=== PATIENT | female | born 1980 | race Caucasian/White ===

== ENCOUNTER → 2018-01-05 07:11 | Outpatient (CLI) | payer OTHER, SELFPAY ==
--- NOTE | 2018-01-05 07:13 | DI.US.S_ITS ---
PROCEDURE: US PELVIC COMPLETE INDICATIONS: right lower quadrant pain x3 weeks TECHNIQUE: Real-time scanning was performed of the pelvic organs, with image documentation. Additional endovaginal scanning was necessary due to incomplete visualization of the adnexal and endometrial structures by transabdominal scanning. COMPARISON: None. FINDINGS: Transabdominal scanning: Limited scanning through the kidneys shows no hydronephrosis. No pathologic free abdominal or pelvic fluid. Endovaginal scanning: Uterus: Uterus is normal in size at 4.5 x 5.4 x 6.6 cm, retroverted. The endometrium measures 7.7 mm in combined thickness, with IUD centrally positioned. Several echogenic foci are seen along the endometrial lining, likely related to the reported history of lost coils related to IUD. Ovaries: Normal bilaterally measuring 1.8 x 1.9 x 3.2 cm on the right and 1.5 x 2.3 x 2.6 cm on the left IMPRESSION: Normal appearing ovaries bilaterally. Centrally positioned IUD noted within the endometrial canal, with adjacent several echogenic foci in the clinical circumstance of reported lost coils from IUD. Dictated by: Deven Hernandez M.D. on 01/05/2018 at 9:20 Approved by: Deven Hernandez M.D. on 01/05/2018 at 9:22
== END ==
PROVIDERS: Family Provider Family Medicine; PCP Family Medicine; Visit Provider Family Medicine
DX: R10.31 Right lower quadrant pain (principal); Z97.5 Presence of (intrauterine) contraceptive device
CPT/HCPCS: 76830; 76856

== ENCOUNTER → 2018-11-07 09:54 | Outpatient (CLI) | payer OTHER, SELFPAY | PROVIDERS: Family Provider Family Medicine; PCP Family Medicine; Visit Provider Physician Assistant | DX: R05 Cough (principal) | CPT/HCPCS: 87400 ==

== ENCOUNTER → 2020-03-19 10:19 | Outpatient (CLI) | payer OTHER, SELFPAY ==
[2020-03-19 10:53] LABS: Add Manual Diff / Slide Review NO; Basophils Absolute Auto 100 /uL (0-100); Basophils Percent Auto 1.1 % (0-2); Eosinophils Absolute Auto 100 /uL (0-450); Eosinophils Percent Auto 1.2 % (2-4); Hematocrit 38.3 % (36-46); Hemoglobin 12.5 g/dL (12.0-16.0); Lymphocytes Absolute Auto 1500 /uL (1100-4500); Lymphocytes Percent Auto 23.8 % (25-40); Mean Corpuscular HGB Conc 32.6 % (30-36); Mean Corpuscular Hemoglobin 27.6 PG (26-34); Mean Corpuscular Volume 84.8 fL (80-100); Monocytes Absolute Auto 400 /uL (0-900); Monocytes Percent Auto 6.3 % (3-14); Neutrophils Absolute Auto 4200 /uL (1500-7000); Neutrophils Percent Auto 67.6 % (50-75); Platelet Count 210 X10^3/uL (150-400); Red Blood Cell Count 4.51 X10^6/uL (4.0-5.2); Red Cell Distribution Width 13.4 % (11.6-14.8); White Blood Cell Count 6.2 X10^3/uL (4.5-11.0)
[2020-03-19 11:09] LABS: HEMOLYSIS < 15 (0-50); Iron 70 ug/dL (37-170)
[2020-03-19 11:15] LABS: Alanine Aminotransferase 12 IU/L (<35); Albumin 4.3 g/dL (3.5-5.0); Albumin Globulin Ratio 1.5 (1.0-2.8); Alkaline Phosphatase 39 U/L (38-126); Aspartate Aminotransferase 22 IU/L (14-36); BUN Creatinine Ratio 21.8 (6-22); Bilirubin Total 0.5 mg/dL (0.2-1.3); Blood Urea Nitrogen 12 mg/dL (7-17); Calcium 9.1 mg/dL (8.4-10.2); Carbon Dioxide 27 mmol/L (22-32); Chloride 104 mmol/L (98-107); Estimated Glomerular Filt Rate > 60.0 mL/min (>60); Globulin 2.8 g/dL (1.7-4.1); Glucose 102 mg/dL (70-100); HEMOLYSIS < 15 (0-50); Potassium 4.4 mmol/L (3.4-5.1); Sodium 136 mmol/L (137-145); Total Protein 7.1 g/dL (6.3-8.2)
[2020-03-19 11:21] LABS: Percent Iron Saturation 22 % (15-50); Total Iron Binding Capacity 320 ug/dL (265-497); Transferrin 243 mg/dL (206-381)
[2020-03-19 11:26] LABS: Vitamin D 25 Hydroxy (D3) 38.4 ng/mL (30.0-100.0)
[2020-03-19 11:29] LABS: Free T3, Triiodothyronine Free 3.67 pg/mL (2.77-5.27); Free T4, Direct Thyroxine 1.35 ng/dL (0.78-2.19)
[2020-03-19 11:43] LABS: Thyroid Stimulating Hormone 1.06 uIU/mL (0.47-4.68)
== END ==
PROVIDERS: Family Provider Family Medicine; PCP Family Medicine; Referring Provider Family Medicine; Visit Provider Family Medicine
DX: R53.83 Other fatigue (principal); D64.9 Anemia, unspecified; E03.9 Hypothyroidism, unspecified
CPT/HCPCS: 36415; 80053; 82306; 83540; 83550; 84439; 84443; 84481; 85025

== ENCOUNTER → 2021-08-20 12:12 | Outpatient (CLI) | payer OTHER, SELFPAY ==
[2021-08-20 12:52] LABS: Add Manual Diff / Slide Review NO; Basophils Absolute Auto 0 /uL (0-100); Basophils Percent Auto 1.1 % (0-2); Eosinophils Absolute Auto 100 /uL (0-450); Eosinophils Percent Auto 1.8 % (2-4); Hematocrit 35.9 % (36-46); Hemoglobin 11.9 g/dL (12.0-16.0); Lymphocytes Absolute Auto 1100 /uL (1100-4500); Lymphocytes Percent Auto 26.2 % (25-40); Mean Corpuscular HGB Conc 33.2 % (30-36); Mean Corpuscular Hemoglobin 27.2 PG (26-34); Mean Corpuscular Volume 81.8 fL (80-100); Monocytes Absolute Auto 400 /uL (0-900); Monocytes Percent Auto 8.5 % (3-14); Neutrophils Absolute Auto 2700 /uL (1500-7000); Neutrophils Percent Auto 62.4 % (50-75); Platelet Count 237 X10^3/uL (150-400); Red Cell Distribution Width 15.3 % (11.6-14.8); White Blood Cell Count 4.3 X10^3/uL (4.5-11.0)
[2021-08-20 13:25] LABS: Alanine Aminotransferase 27 IU/L (<35); Albumin 4.5 g/dL (3.5-5.0); Albumin Globulin Ratio 1.6 (1.0-2.8); Alkaline Phosphatase 41 U/L (38-126); Aspartate Aminotransferase 26 IU/L (14-36); BUN Creatinine Ratio 24.1 (6-22); Bilirubin Total 0.5 mg/dL (0.2-1.3); Blood Urea Nitrogen 13 mg/dL (7-17); Calcium 9.5 mg/dL (8.4-10.2); Carbon Dioxide 29 mmol/L (22-32); Chloride 104 mmol/L (98-107); Estimated Glomerular Filt Rate > 60.0 mL/min (>60); Globulin 2.9 g/dL (1.7-4.1); Glucose 79 mg/dL (70-100); HEMOLYSIS < 15 (0-50); Potassium 4.1 mmol/L (3.4-5.1); Sodium 138 mmol/L (137-145); Total Protein 7.4 g/dL (6.3-8.2)
[2021-08-20 13:30] LABS: Rheumatoid Factor < 8.6 IU/mL (<12.0)
[2021-08-20 14:02] LABS: TSH w/ Reflex to FT4 0.88 uIU/mL (0.47-4.68)
[2021-08-21 18:07] LABS: SS A Ro Sjogrens Antibody 0.3 AI (0.0-0.9); SS B La Sjogrens Antibody < 0.2 AI (0.0-0.9)
[2021-08-22 13:41] LABS: ANA Screen, IFA Negative (.)
== END ==
PROVIDERS: Family Provider Family Medicine; PCP Family Medicine; Referring Provider Family Medicine; Visit Provider Family Medicine
DX: R63.4 Abnormal weight loss (principal)
CPT/HCPCS: 36415; 80053; 84443; 85025; 86038; 86235; 86430

== ENCOUNTER → 2021-11-27 11:41 | Outpatient (CLI) | payer OTHER, SELFPAY ==
--- NOTE | 2021-11-27 11:43 | DI.MG.S_ITS ---
BILATERAL DIGITAL SCREENING MAMMOGRAM 3D/2D WITH CAD: 11/27/2021 CLINICAL: Routine screening. Baseline exam Family history of breast cancer. No prior exams were available for comparison. The tissue of both breasts is extremely dense, which lowers the sensitivity of mammography. Current study was also evaluated with a Computer Aided Detection (CAD) system. There are benign calcifications in both breasts. No significant masses, calcifications, or other findings are seen in either breast. IMPRESSION: BENIGN There is no mammographic evidence of malignancy. A 1 year screening mammogram is recommended. This exam was interpreted at Station ID: [id number]. NOTE: For mammograms, a report in lay terms will be sent to the patient. Approximately 15% of breast malignancies will not be visualized mammographically. In the management of a palpable breast mass, a negative mammogram must not discourage biopsy of a clinically suspicious lesion. Electronically Signed By: Conner andrade/maria:11/27/2021 16:14:47 letter sent: Normal Exam ACR BI-RADS Category 2: Benign Finding(s) 3342F
== END ==
PROVIDERS: Family Provider Family Medicine; PCP Family Medicine; Referring Provider Family Medicine; Visit Provider Family Medicine
DX: Z12.31 Encounter for screening mammogram for malignant neoplasm of breast (principal); Z80.3 Family history of malignant neoplasm of breast
CPT/HCPCS: 77063; 77067

== ENCOUNTER → 2022-10-19 09:04 | Outpatient (CLI) | payer OTHER, SELFPAY ==
[2022-10-19 10:40] LABS: Add Manual Diff / Slide Review NO; Basophils Absolute Auto 0 /uL (0-100); Basophils Percent Auto 0.3 % (0-2); Eosinophils Absolute Auto 100 /uL (0-450); Eosinophils Percent Auto 1.8 % (2-4); Hematocrit 35.2 % (36-46); Hemoglobin 11.6 g/dL (12.0-16.0); Lymphocytes Absolute Auto 1100 /uL (1100-4500); Lymphocytes Percent Auto 28.8 % (25-40); Mean Corpuscular HGB Conc 32.9 % (30-36); Mean Corpuscular Volume 79.1 fL (80-100); Monocytes Absolute Auto 300 /uL (0-900); Neutrophils Absolute Auto 2300 /uL (1500-7000); Neutrophils Percent Auto 61.1 % (50-75); Platelet Count 210 X10^3/uL (150-400); Red Blood Cell Count 4.45 X10^6/uL (4.0-5.2); Red Cell Distribution Width 15.9 % (11.6-14.8); White Blood Cell Count 3.8 X10^3/uL (4.5-11.0)
[2022-10-19 11:13] LABS: Alanine Aminotransferase 14 IU/L (<35); Albumin 4.2 g/dL (3.5-5.0); Albumin Globulin Ratio 1.4 (1.0-2.8); Alkaline Phosphatase 49 U/L (38-126); Aspartate Aminotransferase 18 IU/L (14-36); Bilirubin Total 0.5 mg/dL (0.2-1.3); Blood Urea Nitrogen 13 mg/dL (7-17); Calcium 8.8 mg/dL (8.4-10.2); Carbon Dioxide 30 mmol/L (22-32); Chloride 100 mmol/L (98-107); Estimated Glomerular Filt Rate > 60 mL/min (>60); Glucose 86 mg/dL (70-100); HEMOLYSIS < 15 (0-50); Potassium 4.8 mmol/L (3.4-5.1); Sodium 136 mmol/L (137-145); Total Protein 7.2 g/dL (6.3-8.2)
[2022-10-19 11:29] LABS: Vitamin D 25 Hydroxy (D3) 30.9 ng/mL (30.0-100.0)
[2022-10-19 11:47] LABS: TSH w/ Reflex to FT4 1.48 uIU/mL (0.47-4.68)
== END ==
PROVIDERS: Family Provider Family Medicine; PCP Family Medicine; Referring Provider Family Medicine; Visit Provider Family Medicine
DX: E03.9 Hypothyroidism, unspecified (principal); E55.9 Vitamin D deficiency, unspecified; D64.9 Anemia, unspecified
CPT/HCPCS: 36415; 80053; 82306; 84443; 85025

== ENCOUNTER 2023-03-01 06:49 | Day surgery (SDC) | payer OTHER, SELFPAY ==
[2023-02-22 08:26] VITALS: BMI 21.6
--- NOTE | 2023-03-01 | PATH_ITS ---
[facility] Accession Number: [id number] No. of containers..02 Tissue . 01 Material submitted: . PART A: endometrium - ENDOMETRIAL PART B: cervix - CERVICAL . 01 Diagnosis: A. Endometrial: Histologic features consistent with menstrual endometrium; negative for significant atypia. . B. Cervical: Portions of atypical squamous mucosa, favor a reactive etiology. No intact transformation zone is present in this biopsy. Background menstrual endometrium. [facility] 03/09/2023 1146 Local . 01 Comment: The biopsy results correlate with Pap smear [id number]. . 01 Electronically signed: . Jumana Sharma MD, Pathologist NPI- [id number] . 01 Gross description: . Part A: ENDOMETRIAL : Received in formalin are minute fragments of mucoid and hemorrhagic material measuring 2.0 x 2.0 x 0.6 cm in aggregate. Submitted in toto in 2 cassettes. Part B: CERVICAL : Received in formalin are minute fragments of mucoid and hemorrhagic material measuring 1.5 x 1.5 x 0.3 cm in aggregate. Submitted in toto in 1 cassette. /[facility] 03/04/2023 2210 Local . 01 Pathologist provided ICD-10: N92.1, N87.0 . 01 CPT . 266494, 123495 Specimen Comment: A courtesy copy of this report has been sent to [phone] Performed at: 01 [facility] [address] [place] [address], [place], [place] [id number] MD Adria Martini MD Phone: [phone]
--- NOTE | 2023-03-01 07:11 | SUR.OPER ---
Lithotomy on padded OR bed, head on pillow, arms secured on padded arm boards at <90 degrees abduction. Legs secured in padded yellow fins stirrups.
[2023-03-01 07:17] VITALS: BP 109/70; PULSE 65; RESP 16; TEMP 36.4; O2SAT 100; BMI 21.9
--- NOTE | 2023-03-01 07:23 | PM.PREOP ---
Pre-operative Note COVID-19 Criteria for continued procedure: Increased loss of function Interval Note History & Physical reviewed/Exam performed by Physician: Yes Changes to H&P: No
[2023-03-01] MEDS: LACTATED RINGERS 1,000 ML 100 ML IV (07:36)
[2023-03-01 08:25] VITALS: BP 120/79; PULSE 67; RESP 12; TEMP 36.6; O2SAT 100
[2023-03-01 08:30] VITALS: BP 123/86; PULSE 66; RESP 12; TEMP 36.6; O2SAT 100
--- NOTE | 2023-03-01 08:30 | PM.OP.1 ---
Operative Date/Time/Diagnoses Date of procedure: 03/01/23 Time of procedure: 08:31 Pre-op diagnosis: Menorrhagia and bleeding with intercourse Post-op diagnosis: same Procedure & Clinicians Procedure: Hysteroscopy, D&C, cauterization of prominent blood vessels of the endocervical canal Same procedure as scheduled: Yes Indications: Menorrhagia, bleeding with intercourse Surgeon: Radha Medina Click Yes if Unassisted: Yes Anesthesia Type: General Operative Notes Findings: Uterine and endocervical polyps. Prominent vessels of the endocervix. Closure Type: not applicable Specimen(s): other (Endocervical curettage and uterine curettage) Estimated Blood Loss (mL): 20 Blood products transfused: none Procedure in detail: The patient was brought to the operating room where she underwent general anesthesia. She was placed in low stirrups She was prepped and draped in usual sterile fashion with pulsatile stockings in place and functional, warming in place, no antibiotics were indicated. Her bladder was drained with in and out catheter. A check system was reviewed with staff in the room prior to beginning the case. A single-tooth tenaculum was placed on the anterior lip of the cervix and the uterus dilated to #8 Hegar dilator. The hysteroscope was placed into the uterus with a sorbitol solution running and under constant suction. After initially looking at the uterus and endocervix a fractional D&C was performed with endocervical cells and endocervical polyp sent separately from endometrial cells and polyps. The resecting loop set at 80 W of cutting was used to resect remaining polyps down to the level of the endometrium. Endocervical curetting and the endometrial curettage was sent to pathology. The patient went to recovery room in good condition counts of instruments and sponges were correct. The sorbitol solution I=O approximately 2000 mL. Complications: none Post-operative Condition: stable Disposition: same day surgery Plan for aftercare: Home when awake and stable. Follow-up appointment is scheduled for 2 weeks.
[2023-03-01 08:35] VITALS: BP 121/82; PULSE 62; RESP 12; TEMP 36.6; O2SAT 100
[2023-03-01 08:40] VITALS: BP 129/85; PULSE 66; RESP 13; TEMP 36.4; O2SAT 100
[2023-03-01] MEDS: KETOROLAC 30 MG/ML VIAL IV (08:41)
[2023-03-01 08:55] VITALS: BP 125/82; PULSE 65; RESP 13; TEMP 36.4; O2SAT 100
== END 2023-03-01 09:30 | disposition home or self-care (01) ==
PROVIDERS: Family Provider Family Medicine; Referring Provider Specialist; Visit Provider Specialist
PROC: 0UDB8ZZ Extraction of Endometrium, Via Natural or Artificial Opening Endoscopic (ICD-10-PCS; CPT 58558; principal; 2023-03-01 07:45)
DX: N92.0 Excessive and frequent menstruation with regular cycle (principal)
CPT/HCPCS: 58558; 81025; J1100; J1885; J2405

== ENCOUNTER → 2023-08-18 09:26 | Outpatient (CLI) | payer OTHER, SELFPAY ==
--- NOTE | 2023-08-18 09:27 | DI.MG.S_ITS ---
BILATERAL DIGITAL SCREENING MAMMOGRAM 3D/2D WITH CAD: 08/18/2023 CLINICAL: Routine screening. Family history of breast cancer. Comparison is made to exam dated: 11/27/2021 mammogram - [facility]. Both breasts are extremely dense, which lowers the sensitivity of mammography (category d />75% glandular tissue). Current study was also evaluated with a Computer Aided Detection (CAD) system. There are benign calcifications in both breasts. No significant masses, calcifications, or other findings are seen in either breast. There has been no significant interval change. IMPRESSION: BENIGN There is no mammographic evidence of malignancy. A 1 year screening mammogram is recommended. Based on Tyrer-Cuzick model (a risk assessment model), the patient's lifetime risk is 20.9% and her 10 year risk is 3.2%. If a patient has an elevated risk, a more comprehensive evaluation should be considered and/or a referral to a genetic counselor. The [employer], [employer], and NCCN Guidelines advise the consideration of Breast MRI as an adjunct to screening mammography in patients whose Lifetime risk to develop breast cancer is 20% or higher. This exam was interpreted at Station ID: [id number]. NOTE: For mammograms, a report in lay terms will be sent to the patient. Approximately 15% of breast malignancies will not be visualized mammographically. In the management of a palpable breast mass, a negative mammogram must not discourage biopsy of a clinically suspicious lesion. Electronically Signed By: Evelia lee/maria:08/18/2023 15:59:05 letter sent: Normal Exam ACR BI-RADS Category 2: Benign Finding(s) 3342F
== END ==
LOC: MAMMO 09:26
PROVIDERS: Family Provider Family Medicine; PCP Family Medicine; Referring Provider Family Medicine; Visit Provider Family Medicine
DX: Z12.31 Encounter for screening mammogram for malignant neoplasm of breast (principal); Z80.3 Family history of malignant neoplasm of breast
CPT/HCPCS: 77063; 77067

== ENCOUNTER → 2023-11-10 08:59 | Outpatient (CLI) | payer OTHER, SELFPAY ==
[2023-11-10 09:45] LABS: Add Manual Diff / Slide Review NO; Basophils Absolute Auto 100 /uL (0-100); Basophils Percent Auto 1.1 % (0-2); Eosinophils Absolute Auto 100 /uL (0-450); Hematocrit 37.8 % (36-46); Lymphocytes Absolute Auto 1200 /uL (1100-4500); Lymphocytes Percent Auto 24.1 % (25-40); Mean Corpuscular HGB Conc 31.7 % (30-36); Mean Corpuscular Hemoglobin 25.6 PG (26-34); Mean Corpuscular Volume 80.5 fL (80-100); Monocytes Absolute Auto 400 /uL (0-900); Neutrophils Absolute Auto 3300 /uL (1500-7000); Neutrophils Percent Auto 64.8 % (50-75); Platelet Count 217 X10^3/uL (150-400); Red Blood Cell Count 4.69 X10^6/uL (4.0-5.2); Red Cell Distribution Width 16.4 % (11.6-14.8); White Blood Cell Count 5.1 X10^3/uL (4.5-11.0)
[2023-11-10 10:06] LABS: Alanine Aminotransferase 11 IU/L (<35); Albumin 4.2 g/dL (3.5-5.0); Albumin Globulin Ratio 1.4 (1.0-2.8); Alkaline Phosphatase 45 U/L (38-126); Aspartate Aminotransferase 20 IU/L (14-36); Bilirubin Total 0.7 mg/dL (0.2-1.3); Blood Urea Nitrogen 14 mg/dL (7-17); Calcium 9.1 mg/dL (8.4-10.2); Carbon Dioxide 27 mmol/L (22-32); Chloride 106 mmol/L (98-107); Cholesterol 172 mg/dL (140-199); Estimated Glomerular Filt Rate > 60 mL/min (>60); Globulin 3.1 g/dL (1.7-4.1); Glucose 91 mg/dL (70-100); HDL Cholesterol 61 mg/dL (40-60); HEMOLYSIS < 15 (0-50); LDL Cholesterol Calculated 91 mg/dL (<100); Potassium 4.7 mmol/L (3.4-5.1); Sodium 137 mmol/L (137-145); Total Protein 7.3 g/dL (6.3-8.2); Triglycerides 99 mg/dL (35-150)
[2023-11-10 10:12] LABS: HEMOLYSIS < 15 (0-50); Iron 62 ug/dL (37-170)
[2023-11-10 10:23] LABS: Percent Iron Saturation 17 % (15-50); Total Iron Binding Capacity 364 ug/dL (265-497); Transferrin 300 mg/dL (206-381)
[2023-11-10 10:43] LABS: TSH w/ Reflex to FT4 2.97 uIU/mL (0.47-4.68)
== END ==
PROVIDERS: Family Provider Family Medicine; PCP Family Medicine; Referring Provider Family Medicine; Visit Provider Family Medicine
DX: N93.8 Other specified abnormal uterine and vaginal bleeding (principal); E03.9 Hypothyroidism, unspecified; D64.9 Anemia, unspecified; I49.9 Cardiac arrhythmia, unspecified
CPT/HCPCS: 36415; 80053; 80061; 83540; 83550; 84443; 85025

== ENCOUNTER → 2024-08-07 14:11 | Outpatient (CLI) | payer OTHER, SELFPAY ==
[2024-08-08 07:08] LABS: Thyroid Peroxidase Antibodies 22 IU/mL (0-34)
[2024-08-08 14:36] LABS: Anti Thyroglobulin Antibody <1.0 IU/mL (0.0-0.9)
== END ==
PROVIDERS: Family Provider Family Medicine; PCP Family Medicine; Referring Provider Family Medicine; Visit Provider Family Medicine
DX: E03.9 Hypothyroidism, unspecified (principal)
CPT/HCPCS: 36415; 86376; 86800

== ENCOUNTER → 2024-08-07 15:32 | Outpatient (CLI) | payer OTHER, SELFPAY ==
[2024-08-07 17:50] LABS: C-Reactive Protein Quant < 0.5 mg/dL (<1.0)
[2024-08-07 17:51] LABS: Rheumatoid Factor < 8.6 IU/mL (<12.0)
[2024-08-07 19:55] LABS: Erythrocyte Sedimentation Rate 2 MM/HR (0-20)
[2024-08-10 14:36] LABS: ANA Screen, IFA Negative (.)
== END ==
PROVIDERS: Family Provider Family Medicine; PCP Family Medicine; Referring Provider Family Medicine; Visit Provider Family Medicine
DX: I73.00 Raynaud's syndrome without gangrene (principal); M25.50 Pain in unspecified joint; E03.9 Hypothyroidism, unspecified
CPT/HCPCS: 36415; 85651; 86038; 86140; 86200; 86376; 86430; 86800

== ENCOUNTER → 2025-02-19 09:23 | Outpatient (CLI) | payer OTHER, SELFPAY ==
--- NOTE | 2025-02-19 09:24 | DI.MG.S_ITS ---
MM screening mammo BI: 02/19/2025. BI-RADS: 2 CLINICAL: 44-year old female for bilateral screening mammogram. Tyrer-Cuzick lifetime risk of 11.1%. No personal or first-degree family history of breast cancer. PRIOR EXAMS 08/18/2023, 11/27/2021. MAMMOGRAPHY TECHNIQUE: 2D and 3D (tomosynthesis) digital mammographic views obtained, with additional images as needed for full coverage. Current study was also evaluated with a Computer Aided Detection (CAD) system. DENSITY D. The breasts are extremely dense, which lowers the sensitivity of mammography. MAMMOGRAPHY FINDINGS Bilateral: Benign-appearing calcifications noted. There are no suspicious masses, calcifications, or other findings in the breast. No significant change from comparison. IMPRESSION: * No evidence of malignancy with benign findings. RECOMMENDATIONS Bilateral * Annual screening mammography. OVERALL ASSESSMENT CATEGORY BI-RADS-2: Benign. The [employer] recommends annual screening mammography beginning at age 40 for women with average risk of breast cancer. ELECTRONICALLY SIGNED: Yanet Menjivar M.D. on 02/19/2025 at 10:54:37 PM PT Interpreting Station ID: [id number]
== END ==
PROVIDERS: Family Provider Family Medicine; PCP Family Medicine; Referring Provider Family Medicine; Visit Provider Family Medicine
DX: Z12.31 Encounter for screening mammogram for malignant neoplasm of breast (principal); R92.343 Mammographic extreme density, bilateral breasts
CPT/HCPCS: 77063; 77067